=== PATIENT | female | born 1985 | race Caucasian/White ===

== ENCOUNTER 2019-08-30 15:42 | Emergency (ER) | payer OTHER ==
[~2019-08-30] VITALS: Ht 170.2 cm; Wt 68.5 kg
[2019-08-30] MEDS ORDERED: IV NS 0.9% 2,000 ML IV STA (15:53)
--- NOTE | 2019-08-30 15:57 | NUR ---
CONSTANCE39, FROM [facility], C/O CP NON RADIATING, HYPOTENSIVE 86/45 ON SCENE, ASA 162 MG GIVEN BY EMS, BS HIGH ON GLUCO MACHINE. PT AAOX4, VSS. RR EVEN & UNLABORED. DENIES CP, SOB, DIZZINESS, N/V, WEAKNESS @ THIS TIME. PT SEEN & EVAL'D BY DR. ROA. PLACED ON COMMERCIAL DIVER & WILL CONT TO MONITOR.
[2019-08-30 16:07] LABS: BASOPHILS # (AUTO) 0.1 /CMM (0.0-0.2); BASOPHILS % (AUTO) 1.2 % (0.0-2.0); HEMATOCRIT 32 % (33-45); HEMOGLOBIN 10.4 g/dL (11.5-14.8); LYMPHOCYTES # (AUTO) 1.2 /CMM (0.8-4.8); LYMPHOCYTES % (AUTO) 17.7 % (20.0-44.0); MEAN CORPUSCULAR HGB CONC 32 g/dl (31.0-36.0); MEAN CORPUSCULAR VOLUME 101 fL (82-100); MONOCYTES # (AUTO) 0.3 /CMM (0.1-1.30); NEUTROPHILS # (AUTO) 4.6 /CMM (1.8-8.9); NEUTROPHILS % (AUTO) 68.1 % (43.0-81.0); PLATELET COUNT (AUTO) 367 /CMM (150-450); RED BLOOD CELL COUNT(AUTO) 3.16 MIL/uL (4.0-5.2); WHITE BLOOD COUNT (AUTO) 6.7 K/uL (4.3-11.0)
[2019-08-30 16:39] LABS: CALCIUM, SERUM 8.8 mg/dL (8.5-10.1); CARBON DIOXIDE 24 mmol/L (21-32); CHLORIDE 98 mmol/L (98-107); CREATININE 2.2 mg/dL (0.6-1.3); POTASSIUM 5.9 mmol/L (3.5-5.1); SODIUM SERUM 130 mmol/L (136-145); UREA NITROGEN, BLOOD 23 mg/dL (7-18)
[2019-08-30 16:41] LABS: GLUCOSE 487 mg/dL (74-106)
[2019-08-30] MEDS ORDERED: INSULIN REGULAR, HUMAN 100 UNIT/ML 10 ML VIAL ONE (17:26)
[2019-08-30] MEDS ORDERED: INSULIN REGULAR, HUMAN 100 UNIT/ML 10 ML VIAL IV ONE (17:30)
--- NOTE | 2019-08-30 17:40 | NUR ---
GAVE MOVESHEET TO ADMITTING
--- NOTE | 2019-08-30 18:05 | NUR ---
DR BAUTISTA FROM PT INSURANCE WILL CALL BACK
--- NOTE | 2019-08-30 18:08 | NUR ---
PT ASLEEP, EASILY AWAKEN BY VERBAL STIMULI. DENIES CP, SOB, DIZZINESS, N/V @ THIS TIME. DR. ROA AWARE OF PT'S BP. WILL CONT TO MONITOR.
[2019-08-30] MEDS ORDERED: LOPE2CAP40 PO (18:37)
[2019-08-30] MEDS ORDERED: DOCU-141 PO (18:37)
[2019-08-30] MEDS ORDERED: LATA7.5D OP (18:37)
[2019-08-30] MEDS ORDERED: NIFE60TA73 PO (18:37)
[2019-08-30] MEDS ORDERED: LEVO137T24 PO (18:37)
[2019-08-30] MEDS ORDERED: ASPI-605 PO (18:37)
[2019-08-30] MEDS ORDERED: SPIR25TA6 PO (18:37)
[2019-08-30] MEDS ORDERED: ATOR40TA PO (18:37)
[2019-08-30] MEDS ORDERED: AMOX1TAB16 PO (18:37)
[2019-08-30] MEDS ORDERED: METO-295 PO (18:37)
[2019-08-30] MEDS ORDERED: CYCL5TAB PO (18:37)
[2019-08-30] MEDS ORDERED: MORP30TA59 PO (18:37)
[2019-08-30] MEDS ORDERED: NORG1TAB11 PO (18:37)
[2019-08-30] MEDS ORDERED: NALO1DIS2 IJ (18:37)
[2019-08-30] MEDS ORDERED: FLUD0.1T PO (18:37)
[2019-08-30] MEDS ORDERED: INSU100V7 SQ (18:37)
[2019-08-30] MEDS ORDERED: GABA-534 PO (18:37)
[2019-08-30] MEDS ORDERED: AMMO225L14 TP (18:37)
[2019-08-30] MEDS ORDERED: BENA40TA8 PO (18:37)
[2019-08-30] MEDS ORDERED: DORZ10DR11 OP (18:37)
[2019-08-30] MEDS ORDERED: CABE0.5T2 PO (18:45)
[2019-08-30] MEDS ORDERED: HYDR-4384 PO (18:45)
[2019-08-30] MEDS ORDERED: CLOT15CR63 TP (18:45)
[2019-08-30] MEDS ORDERED: HYDROCORTISONE SOD SUCCINATE 100 MG/2 ML VIAL ONE (18:54)
[2019-08-30] MEDS ORDERED: HYDROCORTISONE SOD SUCCINATE 100 MG/2 ML VIAL IV ONE (19:00)
[2019-08-30] MEDS ORDERED: INSULIN REGULAR, HUMAN 100 UNIT in IV NS 0.9% 99 ML IV PRN ×2 (19:00)
--- NOTE | 2019-08-30 20:52 | NUR ---
AWAITING CALL FROM LEAD RETAIL SALES ASSOCIATE
--- NOTE | 2019-08-30 21:25 | NUR ---
PT ASLEEP, EASILY AWAKEN BY VERBAL STIMULI. RR EVEN & UNLABORED. VSS. DENIES ANY DISCOMFORT @ THIS TIME. BG 238 MG/DL. DR. ROA DC'D INSULIN DRIP. WILL CONT TO MONITOR.
--- NOTE | 2019-08-30 23:28 | NUR ---
PT ACCEPTED TO [facility] [id number]. # FOR REPORT [phone]. PT ACCEPTED BY DR DUNLAP. [facility] [place][id number]
--- NOTE | 2019-08-31 01:13 | NUR ---
CARSON AT BEDSIDE FOR PT TRANSPORT TO [facility]. REPORTS GIVEN TO TASHA PEÑA AT [facility] BY TASHA MCLAIN (PREVIOUS SHIFT) FOR JASMINE. REPORT GIVEN TO LOR WELL.
[2019-08-31 01:15] VITALS: BP 114/63
== END 2019-08-31 01:19 | disposition short-term general hospital (02) ==
LOC: ER 15:45
DX: E27.49 Other adrenocortical insufficiency (principal); I10 Essential (primary) hypertension; E87.5 Hyperkalemia; E11.65 Type 2 diabetes mellitus with hyperglycemia; N17.9 Acute kidney failure, unspecified; R42 Dizziness and giddiness; E87.1 Hypo-osmolality and hyponatremia; Z98.890 Other specified postprocedural states; Z79.899 Other long term (current) drug therapy; Z79.4 Long term (current) use of insulin; Z79.82 Long term (current) use of aspirin
CPT/HCPCS: 36415; 71045; 80048; 82962 ×4; 84484; 85025; 93005 ×2; 96361; 96365; 96366; 96375; 96376; 99285; J1720; J1815 ×2; J7030 ×2

== ENCOUNTER 2019-10-30 13:47 | Inpatient (IN) | payer OTHER ==
[~2019-10-30] VITALS: Ht 170.2 cm; Wt 59.4 kg
[2019-10-30] VITALS (7 sets, daily range): BP systolic 114–137; BP diastolic 68–82
[~2019-10-30 13:47] MED LIST: AMMO225L14 TP; AMOX1TAB16 PO; ASPI-605 PO; ATOR40TA PO; BENA40TA8 PO; CABE0.5T2 PO; CLOT15CR63 TP; CYCL5TAB PO; DOCU-141 PO; DORZ10DR11 OP; GABA-534 PO; HYDR-4384 PO; INSU100V7 SQ; LATA7.5D OP; LEVO137T24 PO; LOPE2CAP40 PO; METO-295 PO; MORP30TA59 PO; NALO1DIS2 IJ; NIFE60TA73 PO; NORG1TAB11 PO; SPIR25TA6 PO
--- NOTE | 2019-10-30 14:00 | NUR ---
bibra99, from home, cough and congestion x 3 weeks, "afraid of getting pneumonia", BS 150. Patient a/ox4, breathing even and unlabored, no sob noted, c/o weakness. changed into gown, attached to the management tech. kept comfortable.
[2019-10-30] MEDS ORDERED: IV NS 0.9% 1,000 ML BAG IV ONE ×2 (14:30→16:30)
--- NOTE | 2019-10-30 14:30 | NUR ---
iv line established, blood drawn and sent to lab. Patient unable to provide urine at this time.
[2019-10-30 14:36] LABS: BASOPHILS % (AUTO) 0.4 % (0.0-2.0); EOSINOPHILS % (AUTO) 0.1 % (0.0-6.0); HEMATOCRIT 43 % (33-45); HEMOGLOBIN 14.1 g/dL (11.5-14.8); LYMPHOCYTES # (AUTO) 0.8 /CMM (0.8-4.8); LYMPHOCYTES % (AUTO) 9.6 % (20.0-44.0); MEAN CORPUSCULAR HGB CONC 33 g/dl (31.0-36.0); MEAN CORPUSCULAR VOLUME 95 fL (82-100); MONOCYTES # (AUTO) 0.3 /CMM (0.1-1.30); MONOCYTES % (AUTO) 3.7 % (2.0-12.0); NEUTROPHILS # (AUTO) 7.6 /CMM (1.8-8.9); NEUTROPHILS % (AUTO) 86.2 % (43.0-81.0); PLATELET COUNT (AUTO) 260 /CMM (150-450); RED BLOOD CELL COUNT(AUTO) 4.56 MIL/uL (4.0-5.2); WHITE BLOOD COUNT (AUTO) 8.8 K/uL (4.3-11.0)
[2019-10-30 14:47] LABS: CALCIUM, SERUM 8.8 mg/dL (8.5-10.1); CREATININE 2.2 mg/dL (0.6-1.3); POTASSIUM 4.8 mmol/L (3.5-5.1)
[2019-10-30 14:54] LABS: ALBUMIN 2.9 g/dL (3.4-5.0); BILIRUBIN,DIRECT 0.1 mg/dL (0.0-0.2); BILIRUBIN,TOTAL 0.2 mg/dL (0.2-1.0); TOTAL PROTEIN, SERUM 7.7 g/dL (6.4-8.2)
[2019-10-30 15:27] LABS: BILIRUBIN,URINE SMALL (NEGATIVE); BLOOD, URINE Large Ery/uL (NEGATIVE); COLOR,URINE Yellow (YELLOW); KETONES,URINE 15 (NEGATIVE); LEUKOCYTE ESTERASE ,URINE Small (NEGATIVE); NITRITE, URINE Negative (NEGATIVE); PROTEIN,URINE >=300 mg/dl (NEGATIVE); UGLUCOSE Negative (NEGATIVE); UROBILINOGEN,URINE 0.2 EU/dL (0.2)
[2019-10-30] MEDS ORDERED: ALBUTEROL FS 2.5 MG/3 ML VIAL.NEB NEB ONE (15:30)
[2019-10-30] MEDS ORDERED: IPRATROPIUM NEB FS 0.5 MG/2.5 ML AMPUL.NEB NEB ONE (15:30)
[2019-10-30] MEDS ORDERED: ONDANSETRON HCL/PF 4 MG/2 ML VIAL IV ONE (15:30)
[2019-10-30] MEDS ORDERED: KETOROLAC TROMETHAMINE INJ 30 MG/ML VIAL IV ONE (15:30)
[2019-10-30 15:36] LABS: APPEARANCE,URINE TURBID (CLEAR)
[2019-10-30 15:37] LABS: BACTERIA,URINE Many /HPF (None Seen); SQUAMOUS EPITHELIAL CELL,UR Moderate /HPF (None Seen); WBC,URINE 30-50 /HPF (0-3)
[2019-10-30] MEDS ORDERED: ONDANSETRON HCL/PF 4 MG/2 ML VIAL ONE (16:02)
[2019-10-30] MEDS ORDERED: KETOROLAC TROMETHAMINE INJ 30 MG/ML VIAL ONE (16:02)
--- NOTE | 2019-10-30 16:08 | NUR ---
Patient is resting comfortably in bed with eyes closed. Easily aroused. VSS
[2019-10-30] MEDS ORDERED: ALBUTEROL FS 2.5 MG/3 ML VIAL.NEB ONE (16:27)
[2019-10-30] MEDS ORDERED: IPRATROPIUM NEB FS 0.5 MG/2.5 ML AMPUL.NEB ONE (16:27)
[2019-10-30] MEDS ORDERED: CEFTRIAXONE 1GM BAG (ER ONLY) 50 ML IV ONE (16:29)
[2019-10-30] MEDS ORDERED: CEFTRIAXONE 1GM BAG (ER ONLY) 1 GM/50 ML PIGGYBACK IV ONE (16:30)
--- NOTE | 2019-10-30 17:00 | NUR ---
Patient is resting comfortably in bed with eyes closed. Easily aroused.
--- NOTE | 2019-10-30 17:15 | NUR ---
spoke with EMILY Fierro.
[2019-10-30] MEDS ORDERED: IV NS 0.9% 1,000 ML IV PRN ×2 (17:19→20:00)
[2019-10-30] MEDS ORDERED: ACETAMINOPHEN 325 MG TABLET PO PRN (17:30)
[2019-10-30] MEDS ORDERED: LOPERAMIDE HCL (2 MG CAP) 2 MG CAPSULE PO PRN (17:30)
[2019-10-30] MEDS ORDERED: DEXTROSE 50%-WATER 50 ML DISP.SYRIN IV PRN (17:30)
[2019-10-30] MEDS ORDERED: *INSULIN REGULAR(HUMULIN R)HUM 100 UNIT/ML VIAL SQ PRN (17:30)
[2019-10-30] MEDS ORDERED: HYDROCODONE/APAP 5/325MG 1 EACH TABLET PO PRN (17:30)
[2019-10-30] MEDS ORDERED: ALBUTEROL FS 2.5 MG/3 ML VIAL.NEB CONTNEB PRN (17:30)
[2019-10-30] MEDS ORDERED: Z GUARD REMEDY 2 OZ OINT TP PRN (17:30)
[2019-10-30] MEDS ORDERED: MAGNESIUM HYDROXIDE 30 ML UDC PO PRN (17:30)
[2019-10-30] MEDS ORDERED: ONDANSETRON HCL/PF 4 MG/2 ML VIAL IVP PRN (17:30)
[2019-10-30] MEDS ORDERED: INSULIN REGULAR, HUMAN 100 UNIT/ML 3 ML VIAL SQ PRN (17:30)
[2019-10-30] MEDS ORDERED: BLOOD SUGAR DIAGNOSTIC 1 EACH STRIP VI SCH (17:30)
--- NOTE | 2019-10-30 17:36 | NUR ---
NURSING SUP GAVE M/S BED 119-2.
--- NOTE | 2019-10-30 18:02 | NUR ---
REPORT GIVEN TO GABBY CORDOVA FOR JASMINE.
[2019-10-30 18:09] LABS: ABG BASE EXCESS -15.3 mmol/L; ABG OXYGEN SATURATION 94.6 % (92.0-98.5); ABG PCO2 20.7 mmHg (35.0-45.0); ABG PH 7.278 (7.350-7.450); ABG PO2 83.2 mmHg (75.0-100.0); AaDO2 41.7 mmHg; COHb 0.3 % (0.5-1.5); MetHb 0.4 % (0.0-1.5); O2Hb 93.9 % (94.0-97.0); SITE, ABG Right Radial; VENT MODE, BG ROOM AIR
--- NOTE | 2019-10-30 18:16 | NUR ---
ABG RESULT REPORTED TO DR. VOSS. GAVE ORDER TO UPGRADE PATIENT TO ICU FOR DKA.
--- NOTE | 2019-10-30 18:32 | NUR ---
ICU 254
--- NOTE | 2019-10-30 19:15 | NUR ---
SENIOR NETWORK ENGINEER NOTES RECEIVED CALL FROM DR VOSS, WITH CLARIFICATION OF ORDERS. PER DR VOSS, MAKE SURE THAT THE PATIENT TURNS OFF HER INSULIN PUMP BEFORE STARTING IV FLUIDS/INSULIN DRIP SO THAT THE PATIENT IS NOT DOUBLE DOSED
[2019-10-30] MEDS ORDERED: IV PREMIX D5 1/2NS + KCL 1,000 ML IV PRN (19:18)
--- NOTE | 2019-10-30 19:42 | NUR ---
REPORT GIVEN TO MONTY RN. FOR JASMINE.
--- NOTE | 2019-10-30 19:50 | NUR ---
VAT HOUSE LABORERAUDIOVISUAL AIDS TECHNICIAN NOTES [facility], DIAGNOSIS: DKA. PATIENT LETHARGIC, BUT ALERT AND ORIENTED X4, ABLE TO VERBALIZE NEEDS. BREATHING LABORED UPON EXERTION, RESPIRATORY RATE IN THE 30S AT THIS TIME. CALL LIGHT WITHIN EASY REACH. RIGHT EYE BLINDNESS, LEFT EYE ABLE TO SEE "OUTLINES." LEFT AND RIGHT AC IV ACCESS #20, PATENT AND INTACT, FLUSHED WITH NS, WILL START IV FLUIDS ORDERED BY MD. PLAN OF CARE DISCUSSED WITH THE PATIENT, WHOM VERBALIZES UNDERSTANDING OF THE PLAN OF CARE. ALL QUESTIONS ANSWERED ABLE.
[2019-10-30] MEDS ORDERED: IV D5/ 0.9% NACL 1,000 ML IV PRN (20:00)
[2019-10-30] MEDS: BLOOD SUGAR DIAGNOSTIC 1 EACH STRIP IN SCH ×3 (20:07→22:05)
--- NOTE | 2019-10-30 20:16 | NUR ---
KETTLE GIRL NOTES ATTEMPTED TO CALL PATIENT'S SISTER XOCHITL [phone] REGARDING BRINGING CONTROL PILLS FROM HOME TO BRING TO PHARMACY. UNABLE TO REACH AT THIS TIME, UNABLE TO LEAVE VOICE MESSAGE MAIL BOX IS FULL. WILL TRY AGAIN AT LATER TIME
[2019-10-30 21:21] LABS: CALCIUM, SERUM 7.7 mg/dL (8.5-10.1); CREATININE 2.1 mg/dL (0.6-1.3); POTASSIUM 3.9 mmol/L (3.5-5.1)
[2019-10-30] MEDS: ATORVASTATIN 40 MG TABLET PO SCH ×2 (22:00→22:09)
--- NOTE | 2019-10-30 22:00 | NUR ---
LABOR DELIVERY RN NOTES NORCO INEFFECTIVE FOR PAIN. PATIENT REQUEST FOR IV PAIN MEDICATION. DR VOSS NOTIFIED, WITH NEW ORDER FOR MORPHINE 2MG IV Q4H PRN FOR SEVERE PAIN AND ZOFRAN 4MG Q4H PRN FOR NAUSEA. WILL CARRY OUT NEW ORDERS AND MONITOR THE PATIENT CLOSELY
[2019-10-30] MEDS: INSULIN REGULAR, HUMAN 100 UNIT in IV NS 0.9% 99 ML IV PRN ×2 (22:07)
[2019-10-30] MEDS: TIMOLOL MAL/DORZOLAM HCL OPHTH 10 ML BOTTLE OP SCH (22:10)
[2019-10-30] MEDS: MORPHINE SULFATE INJ 2 MG/ML DISP.SYRIN IV PRN (22:46)
[2019-10-31] VITALS (30 sets, daily range): BP systolic 99–168; BP diastolic 60–113
[2019-10-31] MEDS: IV D5/0.45 NACL 1,000 ML IV PRN ×3 (02:20→19:36)
[2019-10-31 03:39] LABS: BASOPHILS % (AUTO) 0.5 % (0.0-2.0); EOSINOPHILS % (AUTO) 0.2 % (0.0-6.0); HEMATOCRIT 40 % (33-45); HEMOGLOBIN 13.1 g/dL (11.5-14.8); LYMPHOCYTES # (AUTO) 1.1 /CMM (0.8-4.8); LYMPHOCYTES % (AUTO) 13.5 % (20.0-44.0); MEAN CORPUSCULAR HGB CONC 33 g/dl (31.0-36.0); MEAN CORPUSCULAR VOLUME 94 fL (82-100); MONOCYTES # (AUTO) 0.4 /CMM (0.1-1.30); MONOCYTES % (AUTO) 4.6 % (2.0-12.0); NEUTROPHILS # (AUTO) 6.8 /CMM (1.8-8.9); NEUTROPHILS % (AUTO) 81.2 % (43.0-81.0); PLATELET COUNT (AUTO) 194 /CMM (150-450); RED BLOOD CELL COUNT(AUTO) 4.28 MIL/uL (4.0-5.2); WHITE BLOOD COUNT (AUTO) 8.4 K/uL (4.3-11.0)
[2019-10-31] MEDS: MORPHINE SULFATE INJ 2 MG/ML DISP.SYRIN IV PRN ×5 (03:46→23:00)
[2019-10-31 04:01] LABS: CALCIUM, SERUM 7.5 mg/dL (8.5-10.1); CREATININE 1.9 mg/dL (0.6-1.3); MAGNESIUM 1.7 mg/dL (1.8-2.4); PHOSPHORUS 2.5 mg/dL (2.5-4.9); POTASSIUM 3.7 mmol/L (3.5-5.1)
--- NOTE | 2019-10-31 04:15 | NUR ---
BLEACHER SULFITE PULP NOTES BLOOD SUGAR AT 0400 = 107. RIKKI SAFETY PERSON NOTIFIED SINCE BLOOD SUGAR HAS BEEN TRENDING DOWN BUT THE ANION GAP IS STILL OPEN AT 18. PER RIKKI, INCREASE IV FLUIDS TO D5 1/2 NS @ 150ML/HR. WILL CARRY OUT NEW ORDERS AND CONTINUE CLOSE MONITORING
--- NOTE | 2019-10-31 07:00 | NUR ---
DATA SCIENCES DIRECTOR NOTES PATIENT RESTING IN BED, APPEARS COMFORTABLE AT THIS TIME. CONTINUES ON INSULIN GTT, TITRATED TO 1.6 UNITS/HOUR FOR BLOOD SUGAR OF 106MG/DL.
--- NOTE | 2019-10-31 07:24 | NUR ---
ICU OPENING NOTE RECEIVED BEDSIDE REPORT. PT ASLEEP IN BED, ON ROOM AIR, SATURATING WELL, RESPIRATIONS EVEN AND UNLABORED, NO SIGNS OF RESPIRATORY DISTRESS NOTED. SINUS RHYTHM ON TELE MONITOR. IV SITE ON RIGHT AC G20 INTACT, PATENT, WITH HEP LOCK IN PLACE. IV SITE ON LEFT AC G20 INTACT, PATENT, D5 1/2 NS INFUSING AT 150CC/HR, INSULIN DRIP INFUSING AT 1.6 UNITS/HR. BED IN LOW POSITION, LOCKED, CALL LIGHT WITHIN REACH. WILL CONTINUE TO MONITOR CLOSELY.
[2019-10-31] MEDS: LEVOTHYROXINE SODIUM 75 MCG TABLET PO SCH (07:46)
--- NOTE | 2019-10-31 08:04 | NUR ---
BLOOD GLUCOSE RESULT 145 MG/DL. CHANGED INSULIN DRIP TO 2.175 UNITS/HR.
[2019-10-31] MEDS: GABAPENTIN 300 MG CAPSULE PO SCH ×3 (08:40→16:18)
[2019-10-31] MEDS: TIMOLOL MAL/DORZOLAM HCL OPHTH 10 ML BOTTLE OP SCH ×2 (08:40→16:18)
[2019-10-31] MEDS: METOCLOPRAMIDE HCL 10 MG TABLET PO SCH ×3 (08:40→16:18)
[2019-10-31] MEDS: ASPIRIN EC 81 MG TABLET.DR PO SCH (08:40)
[2019-10-31] MEDS: DOCUSATE SODIUM 100 MG CAPSULE PO SCH (08:40)
[2019-10-31] MEDS: CYCLOBENZAPRINE 10 MG TABLET PO SCH (08:40)
[2019-10-31] MEDS: AMMONIUM LACTATE 227 GM BOTTLE TP SCH (08:42)
[2019-10-31] MEDS: NIFEdipine XL 60 MG TAB PO SCH (09:00)
[2019-10-31] MEDS ORDERED: NORGESTIMATE ETHINYL ESTRADIOL PO SCH (09:00)
[2019-10-31] MEDS ORDERED: MORPHINE SULFATE SR 30 MG TABLET.SA PO SCH (09:00)
[2019-10-31] MEDS ORDERED: Magnesium 1GM/D5W 100ML PREMIX 100 ML IV SCH (09:17)
[2019-10-31] MEDS: CLOTRIMAZOLE 1% CREAM 24 GM TUBE TP SCH ×2 (09:27→16:19)
[2019-10-31 09:56] LABS: CALCIUM, SERUM 7.4 mg/dL (8.5-10.1); CREATININE 1.7 mg/dL (0.6-1.3); POTASSIUM 3.6 mmol/L (3.5-5.1)
[2019-10-31] MEDS: methylPREDNISolone SOD SUCC 125 MG/2ML VIAL IV SCH ×3 (12:41→21:26)
[2019-10-31 13:38] LABS: CALCIUM, SERUM 7.7 mg/dL (8.5-10.1); CREATININE 1.6 mg/dL (0.6-1.3); POTASSIUM 3.4 mmol/L (3.5-5.1)
[2019-10-31] MEDS: CEFTRIAXONE 1 G in IV D5W 50 ML IV SCH (16:52)
[2019-10-31 17:01] LABS: CREATININE 1.5 mg/dL (0.6-1.3)
--- NOTE | 2019-10-31 17:14 | NUR ---
COLLECTED URINE SAMPLE, CALLED LAB FOR REPAIR MECHANIC
[2019-10-31] MEDS: BLOOD SUGAR DIAGNOSTIC 1 EACH STRIP IN SCH ×3 (18:04→23:10)
--- NOTE | 2019-10-31 18:59 | NUR ---
ICU CLOSING NOTE PT AWAKE IN BED, ALERT AND ORIENTED X 4, ON ROOM AIR, SATURATING WELL, RESPIRATIONS EVEN AND UNLABORED, NO SIGNS OF RESPIRATORY DISTRESS NOTED. SINUS RHYTHM ON TELE MONITOR. IV SITE ON RIGHT AC G20 INTACT, PATENT, INFUSING D5 1/2 NS AT 150CC/HR, INSULIN DRIP INFUSING AT 4UNITS/HR . IV SITE ON RIGHT HAND G22 INTACT, PATENT WITH HEP LOCK IN PLACE. PROVIDED SAFETY AND COMFORT TO PT THROUGHOUT SHIFT, ALL DUE MEDS GIVEN, TURNED AND REPOSITIONED EVERY 2 HOURS. PT ATE 0% BREAKFAST, ATE 100% LUNCH AND DINNER. BED IN LOW POSITION, LOCKED, CALL LIGHT WITHIN REACH. WILL ENDORSE TO NOC SHIFT NURSE FOR JASMINE.
--- NOTE | 2019-10-31 19:00 | NUR ---
RECEIVED PATIENT AWAKE.ALERT,CONVERSES,COHERENT AND APPROPRIATE,NOT IN ANY DISTRESS BUT FEELS VERY WEAK AND TIRED LOOKING,ABLE TO MOVE IN BED WITH NO DIFFICULTY BUT C/O CHRONIC BACK PAIN.ON INSULIN DRIP ,FINGER STICK /BS MONITORY Q 1HR. BMP Q 4HRR. COMFORT CARE DONE,NEEDS ATTENDED.
[2019-10-31 19:11] LABS: CREATININE, URINE 85.7 MG/DL (30.0-125.0); URINE TOTAL PROTEIN 130.6 mg/dL (0-11.9)
[2019-10-31 20:08] LABS: APPEARANCE,URINE CLEAR (CLEAR); BILIRUBIN,URINE NEGATIVE (NEGATIVE); BLOOD, URINE MODERATE Ery/uL (NEGATIVE); COLOR,URINE YELLOW (YELLOW); KETONES,URINE NEGATIVE (NEGATIVE); LEUKOCYTE ESTERASE ,URINE TRACE (NEGATIVE); NITRITE, URINE NEGATIVE (NEGATIVE); PROTEIN,URINE 100 mg/dl (NEGATIVE); UGLUCOSE NEGATIVE (NEGATIVE); UROBILINOGEN,URINE 0.2 EU/dL (0.2)
[2019-10-31 20:09] LABS: CALCIUM, SERUM 7.8 mg/dL (8.5-10.1); CREATININE 1.5 mg/dL (0.6-1.3); POTASSIUM 4.1 mmol/L (3.5-5.1)
[2019-10-31 20:22] LABS: BACTERIA,URINE 1+ /HPF (None Seen); SQUAMOUS EPITHELIAL CELL,UR Few /HPF (None Seen); WBC,URINE 21-50 /HPF (0-3); YEAST,URINE Few /HPF (None Seen)
[2019-10-31 20:32] LABS: EOSINOPHIL,URINE Rare
[2019-10-31] MEDS: ATORVASTATIN 40 MG TABLET PO SCH ×2 (21:26→21:37)
[2019-10-31] MEDS: MORPHINE SULFATE SR 15 MG TABLET.SA PO SCH (21:35)
--- NOTE | 2019-10-31 22:00 | NUR ---
NOTED BP TO BE HIGH,PATIENT STATES SHE WAS ON ANTI HTN MEDS BEFORE BUT WAS TOLD BY MD TO STOP TAKING IT.ALSO C/O BACK PAIN ,WILL GIVE DUE PAIN MEDICATION (MORPHINE SR) AND WILL REASSES BP AFTER, ONCE PAIN IS BETTER
[2019-10-31 22:49] LABS: CALCIUM, SERUM 7.8 mg/dL (8.5-10.1); CREATININE 1.6 mg/dL (0.6-1.3); POTASSIUM 4.2 mmol/L (3.5-5.1)
--- NOTE | 2019-10-31 23:00 | NUR ---
BP STILL HIGH 163/110, STILL WITH PAIN BUT NOT TOO BAD.MORPHINE 2 MG IV PRN GIVEN. WILL MONITOR IF BP COMES DOWN AFTER GIVING PAIN MEDICATION,DENIES ANY HEADACHE.
--- NOTE | 2019-10-31 23:50 | NUR ---
BP STILL HIGH AFTER GIVING PAIN MEDICATION,PATIENT IS ASLEEP /RELAX. CALLED MD STRAIGHTENER HAND TO REFER ABOUT HIGH BP. Nilson COSTA RESPONDED MADE HIM AWARE OF THE PROLONGED ELEVATED BLOOD PRESSURE DESPITE GIVING PAIN MEDICATION , ORDERED HYDRALAZINE PO (SUGGESTED IV,BUT HE THINKS PATIENT DOES NOT NEED IV HYDRALAZINE).
[2019-11-01] VITALS (58 sets, daily range): BP systolic 115–196; BP diastolic 78–118
[2019-11-01] MEDS ORDERED: hydrALAZINE HCL 25 MG TABLET PO ONE
[2019-11-01] MEDS: BLOOD SUGAR DIAGNOSTIC 1 EACH STRIP IN SCH ×24 (00:08→23:11)
[2019-11-01] MEDS ORDERED: hydrALAZINE HCL 25 MG TABLET ONE (00:42)
[2019-11-01] MEDS: IV D5/0.45 NACL 1,000 ML IV PRN ×3 (02:09→16:18)
[2019-11-01 03:28] LABS: BASOPHILS % (AUTO) 0.1 % (0.0-2.0); HEMATOCRIT 40 % (33-45); HEMOGLOBIN 13.2 g/dL (11.5-14.8); LYMPHOCYTES # (AUTO) 0.4 /CMM (0.8-4.8); LYMPHOCYTES % (AUTO) 6.9 % (20.0-44.0); MEAN CORPUSCULAR HGB CONC 33 g/dl (31.0-36.0); MEAN CORPUSCULAR VOLUME 93 fL (82-100); MONOCYTES # (AUTO) 0.1 /CMM (0.1-1.30); MONOCYTES % (AUTO) 1.3 % (2.0-12.0); NEUTROPHILS # (AUTO) 5.8 /CMM (1.8-8.9); NEUTROPHILS % (AUTO) 91.7 % (43.0-81.0); PLATELET COUNT (AUTO) 218 /CMM (150-450); RED BLOOD CELL COUNT(AUTO) 4.36 MIL/uL (4.0-5.2); WHITE BLOOD COUNT (AUTO) 6.3 K/uL (4.3-11.0)
[2019-11-01] MEDS: MORPHINE SULFATE INJ 2 MG/ML DISP.SYRIN IV PRN ×4 (03:40→19:58)
[2019-11-01 03:42] LABS: ALBUMIN 2.2 g/dL (3.4-5.0); BILIRUBIN,TOTAL 0.1 mg/dL (0.2-1.0); CALCIUM, SERUM 7.9 mg/dL (8.5-10.1); CREATININE 1.4 mg/dL (0.6-1.3); MAGNESIUM 1.9 mg/dL (1.8-2.4); PHOSPHORUS 1.5 mg/dL (2.5-4.9); TOTAL PROTEIN, SERUM 6.6 g/dL (6.4-8.2)
--- NOTE | 2019-11-01 04:00 | NUR ---
CALLED MD AGAIN ,BP STILL HIGH DESPITE PAIN MEDICATION,PATIENT RELAX AND ASLEEP ,JUAN CARLOS COSTA RESPONDED MADE HIM AWARE OF BP STILL HIGH AFTER THE HYDRALAZINE PO DOSE, ORDERED TO GIVE 10 MG HYDRALAZINE IVP
[2019-11-01] MEDS ORDERED: hydrALAZINE HCL IV 20 MG VIAL IV ONE (04:30)
[2019-11-01] MEDS: INSULIN REGULAR, HUMAN 100 UNIT in IV NS 0.9% 99 ML IV PRN ×2 (05:12)
--- NOTE | 2019-11-01 06:00 | NUR ---
BP improved post Hydralazine IV.Still on insulin drip ,continue FS check q 1 hr.Report given to Fariha CORDOVA
--- NOTE | 2019-11-01 07:30 | NUR ---
INTAKE SPECIALIST OPENING NOTE RECEIVED BEDSIDE REPORT FROM PM NURSE. PATIENT IN BED.AXOX4.R EYE BLINDNESS .ON ROOM AIR. SATURATING WELL.RESPIRATIONS EVEN AND UNLABORED. NO SIGNS OF RESPIRATORY DISTRESS NOTED. SINUS RHYTHM ON TELE MONITOR. IV SITE ON RIGHT AC G20 INTACT, PATENT, WITH HEP LOCK IN PLACE. IV SITE ON LEFT AC G20 INTACT, PATENT, D5 1/2 NS INFUSING AT 150CC/HR, INSULIN DRIP . BED IN LOW POSITION, LOCKED, CALL LIGHT WITHIN REACH.SRX3. WILL CONTINUE TO MONITOR .
[2019-11-01] MEDS: LEVOTHYROXINE SODIUM 75 MCG TABLET PO SCH (07:40)
[2019-11-01 08:44] LABS: CALCIUM, SERUM 8.1 mg/dL (8.5-10.1); CREATININE 1.4 mg/dL (0.6-1.3); POTASSIUM 3.6 mmol/L (3.5-5.1)
[2019-11-01] MEDS: DOCUSATE SODIUM 100 MG CAPSULE PO SCH (09:00)
[2019-11-01] MEDS: CLOTRIMAZOLE 1% CREAM 24 GM TUBE TP SCH ×2 (09:32→17:16)
[2019-11-01] MEDS: TIMOLOL MAL/DORZOLAM HCL OPHTH 10 ML BOTTLE OP SCH ×2 (09:33→17:16)
[2019-11-01] MEDS: CYCLOBENZAPRINE 10 MG TABLET PO SCH (09:33)
[2019-11-01] MEDS: methylPREDNISolone SOD SUCC 125 MG/2ML VIAL IV SCH ×4 (09:33→20:58)
[2019-11-01] MEDS: MORPHINE SULFATE SR 15 MG TABLET.SA PO SCH ×2 (09:33→20:59)
[2019-11-01] MEDS: ASPIRIN EC 81 MG TABLET.DR PO SCH (09:33)
[2019-11-01] MEDS: METOCLOPRAMIDE HCL 10 MG TABLET PO SCH ×3 (09:34→16:59)
[2019-11-01] MEDS: GABAPENTIN 300 MG CAPSULE PO SCH ×3 (09:34→16:59)
[2019-11-01] MEDS: NIFEdipine XL 60 MG TAB PO SCH (09:34)
[2019-11-01] MEDS: MAG HYDROX/AL HYDROX/SIMETH 30 ML UDC PO PRN ×2 (09:40→15:13)
[2019-11-01] MEDS: AMMONIUM LACTATE 227 GM BOTTLE TP SCH (09:47)
[2019-11-01] MEDS ORDERED: K PHOS NEUTRAL 250 MG TABLET PO ONE (11:00)
--- NOTE | 2019-11-01 13:10 | NUR ---
TACK MAKER NOTE PATIENT C/O SORE THROAT AND BP IS TRENDING UP >160.PATIENT REFUSED TO TAKE ANY BP PRN MEDS.WAIT FOR WHILE. MADE AWARE. GOT NEW ORDERS.WILL CONTINUE TO MONITOR.
[2019-11-01] MEDS ORDERED: MENTHOL/CETYLPYRD (CEPACOL) 1 LOZ LOZENGE PO PRN (13:30)
[2019-11-01 13:33] LABS: CALCIUM, SERUM 7.9 mg/dL (8.5-10.1); CREATININE 1.3 mg/dL (0.6-1.3)
[2019-11-01] MEDS: CLONIDINE HCL 0.1 MG TABLET PO PRN ×2 (13:33→20:58)
[2019-11-01] MEDS: CEFTRIAXONE 1 G in IV D5W 50 ML IV SCH (17:15)
[2019-11-01 17:53] LABS: CALCIUM, SERUM 8.1 mg/dL (8.5-10.1); CREATININE 1.4 mg/dL (0.6-1.3); POTASSIUM 3.8 mmol/L (3.5-5.1)
--- NOTE | 2019-11-01 19:22 | NUR ---
FUTURES TRADER CLOSING NOTE PATIENT IN BEDSIDE COMMODE.AXOX4.R EYE BLINDNESS .ON ROOM AIR. SATURATING WELL.RESPIRATIONS EVEN AND UNLABORED. NO SIGNS OF RESPIRATORY DISTRESS NOTED. SINUS RHYTHM ON TELE MONITOR. IV SITE ON RIGHT AC G20 INTACT, PATENT, WITH HEP LOCK IN PLACE. IV SITE ON LEFT AC G20 INTACT, PATENT, D5 1/2 NS INFUSING AT 100CC/HR, INSULIN DRIP . BED IN LOW POSITION, LOCKED, CALL LIGHT WITHIN REACH.SRX3. UPDATED ABOUT PATIENT CONDITION WITH LABS.DECREASE IVF TO 100ML/HR.PATIENT HAS BLACK COLOR BM.AND ABDOMINAL PAIN.GOT ORDER FOR STOOL FOR OB. ENDORSED TO PM NURSE FOR JASMINE,
--- NOTE | 2019-11-01 19:25 | NUR ---
RN OPENING NOTES RECEIVED PATIENT IN BED, AWAKE, AXOX4. C/O OF LOWER BACK PAIN 05/27, WILL ADMINISTER PRN PAIN MEDICATION. NOTED PATIENT WITH R EYE BLINDNESS AND USES MAGNIFIER AT BEDSIDE. ON ROOM AIR, TOLERATING WELL, NO SOB OR RESPIRATORY DISRESS NOTED, SATURATING 98%. SINUS RHYTHM ON TELE MONITOR WITH HR 80'S. IV SITE RIGHT HAND 22G, FLUSHING AND PATENT, SITE C/D/I. IV SITE ON RIGHT AC G20 SITE C/D/I, WITH ON GOING D5 1/2 NS INFUSING AT 100CC/HR, AND INSULIN DRIP NOTED CURRENTLY RUNNING 4UNITS. SAFETY MEASURES IN PLACE; CALL LIGHT WITHIN REACH, SIDE RAILS UP X2, BED IN LOW AND LOCKED POSITION. BED SIDE COMMODE NOTED. INSTRUCTED PATIENT TO USE CALL LIGHT FOR HELP. WILL CONT TO MONITOR PT CLOSELY.
--- NOTE | 2019-11-01 21:20 | NUR ---
RN NOTES CALLED LAB AND SPOKE TO YANDY FOR BMP LAB DRAW, STATED THEY WILL COME UP AND DO IT. AWAITING FOR LAB.
[2019-11-01 22:00] LABS: CALCIUM, SERUM 7.9 mg/dL (8.5-10.1); CREATININE 1.4 mg/dL (0.6-1.3)
[2019-11-01] MEDS: ATORVASTATIN 40 MG TABLET PO SCH (22:21)
[2019-11-02] VITALS (24 sets, daily range): BP systolic 111–163; BP diastolic 61–104
[2019-11-02] MEDS: BLOOD SUGAR DIAGNOSTIC 1 EACH STRIP IN SCH ×14 (00:06→12:02)
[2019-11-02] MEDS: ZOLPIDEM TARTRATE 5 MG TABLET PO PRN ×2 (00:43→23:36)
[2019-11-02 01:08] LABS: CALCIUM, SERUM 7.9 mg/dL (8.5-10.1); CREATININE 1.3 mg/dL (0.6-1.3); POTASSIUM 4.2 mmol/L (3.5-5.1)
[2019-11-02] MEDS: IV D5/0.45 NACL 1,000 ML IV PRN (01:16)
[2019-11-02 05:41] LABS: CALCIUM, SERUM 8.2 mg/dL (8.5-10.1); CREATININE 1.5 mg/dL (0.6-1.3); PHOSPHORUS 1.5 mg/dL (2.5-4.9); POTASSIUM 3.9 mmol/L (3.5-5.1)
[2019-11-02] MEDS: INSULIN REGULAR, HUMAN 100 UNIT in IV NS 0.9% 99 ML IV PRN ×2 (06:30)
[2019-11-02] MEDS: MORPHINE SULFATE INJ 2 MG/ML DISP.SYRIN IV PRN ×3 (06:31→22:40)
--- NOTE | 2019-11-02 07:15 | NUR ---
SUPERVISOR BURLING AND JOINING INITIAL NOTES Rec'd pt on bed, A/O x 4, not in any distress. On R/A, no SOB. SR on telemonitor. Has IV line on HALIE G24 w/ Insulin drip and D5NS x 100 cc/hr infusing well. Safety precaution in place w/ bed in lowest & locked pos. Call light placed w/in reach. Will cont to monitor & attend pt needs.
--- NOTE | 2019-11-02 07:15 | NUR ---
RN CLOSING NOTES PATIENT RESTING IN BED, AWAKE, A/OX4. ON ROOM AIR, TOLERATING WELL, NO SOB OR RESPIRATORY DISTRESS NOTED, SATURATING 96%. SINUS RHYTHM ON TELE MONITOR WITH HR 80'S. IV SITE LEFT AC 24G WITH ON GOING D5 1/2 NS INFUSING AT 100CC/HR, AND INSULIN DRIP NOTED CURRENTLY RUNNING 4UNITS. LATEST ANION GAP 16. MIDLINE ORDERED D/T PATIENT VERY HARD STICK. STOOL SAMPLE COLLECTED AND SENT TO LAB. SAFETY MEASURES IN PLACE; CALL LIGHT WITHIN REACH, SIDE RAILS UP X2, BED ALARM ON, BED IN LOW AND LOCKED POSITION. BED SIDE COMMODE NOTED. INSTRUCTED PATIENT TO USE CALL LIGHT FOR HELP. ENDORSED TO AM RN FOR JASMINE.
[2019-11-02] MEDS: CLOTRIMAZOLE 1% CREAM 24 GM TUBE TP SCH ×2 (07:40→18:45)
[2019-11-02] MEDS: LEVOTHYROXINE SODIUM 75 MCG TABLET PO SCH (07:40)
[2019-11-02] MEDS: ASPIRIN EC 81 MG TABLET.DR PO SCH (09:08)
[2019-11-02] MEDS: DOCUSATE SODIUM 100 MG CAPSULE PO SCH (09:08)
[2019-11-02] MEDS: MORPHINE SULFATE SR 15 MG TABLET.SA PO SCH ×2 (09:08→21:23)
[2019-11-02] MEDS: GABAPENTIN 300 MG CAPSULE PO SCH ×3 (09:08→16:30)
[2019-11-02] MEDS: methylPREDNISolone SOD SUCC 125 MG/2ML VIAL IV SCH ×2 (09:09→17:00)
[2019-11-02] MEDS: METOCLOPRAMIDE HCL 10 MG TABLET PO SCH ×3 (09:09→18:45)
[2019-11-02] MEDS: CYCLOBENZAPRINE 10 MG TABLET PO SCH (09:09)
[2019-11-02] MEDS: TIMOLOL MAL/DORZOLAM HCL OPHTH 10 ML BOTTLE OP SCH ×2 (09:13→16:32)
[2019-11-02] MEDS: NIFEdipine XL 60 MG TAB PO SCH (09:13)
[2019-11-02] MEDS: AMMONIUM LACTATE 227 GM BOTTLE TP SCH (09:14)
[2019-11-02] MEDS: MAG HYDROX/AL HYDROX/SIMETH 30 ML UDC PO PRN ×3 (09:29→23:52)
--- NOTE | 2019-11-02 11:00 | NUR ---
Pt seen & examined by Dr. Sneed, updated about pt condition & status.
[2019-11-02 11:05] LABS: CALCIUM, SERUM 7.8 mg/dL (8.5-10.1); CREATININE 1.3 mg/dL (0.6-1.3); POTASSIUM 4.1 mmol/L (3.5-5.1)
[2019-11-02] MEDS: LEVOFLOXACIN 500 MG /D5W 100ML 500 MG in PREMIX 1 EA IV SCH (11:27)
[2019-11-02] MEDS: CLONIDINE HCL 0.1 MG TABLET PO PRN (12:14)
[2019-11-02] MEDS ORDERED: K PHOS NEUTRAL 250 MG TABLET PO ONE (12:30)
--- NOTE | 2019-11-02 12:30 | NUR ---
Anion gap [address] Sneed w/ orders to stop IVF & insulin drip. Start on moderate sliding scale ACHS. May downgrade to MS. Pt made aware. Addendum: 11/02/19 at 1638 by KILO LEI RN Addendum: Dr. Sneed made aware that pt has been running high BP. Per , to continue PRN clonidine & he will resume pt home meds.
[2019-11-02] MEDS ORDERED: DEXTROSE 50%-WATER 50 ML DISP.SYRIN IV PRN (13:00)
--- NOTE | 2019-11-02 15:00 | NUR ---
CAR PRE COOLERTELEVISION SCHEDULE COORDINATOR NOTES Pt downgraded to MS 202 as ordered via bed. Pt remains A/O x 4. No SOB while on R/A. Remains SR on telemonitor. IV line access kept patent & intact, both flushing well, SL. All belongings sent w/ pt, per pt nothing missing. Report given to Valerie CORDOVA for JASMINE. Safety precaution observed at all times. No concerns/issues identified during transfer.
--- NOTE | 2019-11-02 15:21 | NUR ---
MS RN NOTES RECEIVED PATIENT FROM ICU, ALERT AND ORIENTED X4. AMBULATORY WITH UNSTEADY GAIT, ASSISTANCE RENDERED. NO S/S OF RESPIRATORY DISTRESS. ORIENTED PATIENT TO ROOM, CALL LIGHT AND UNIT. CALL LIGHT WITHIN REACH. BED IN LOWEST POSITION, LOCKED. BED ALARM ON.
--- NOTE | 2019-11-02 15:25 | NUR ---
MS RN NOTES BS CHECKED BS 468MG/DL DR. VOSS AWARE WITH ORDERS TO GIVE 14 UNITS OF REGULAR INSULIN NOW.
[2019-11-02] MEDS: INSULIN REGULAR, HUMAN 100 UNIT/ML 3 ML VIAL SQ PRN ×2 (15:49→17:47)
--- NOTE | 2019-11-02 16:24 | NUR ---
MS RN NOTES BS RECHECKED. 508MG/DL
--- NOTE | 2019-11-02 17:29 | NUR ---
MS RN NOTES BS RECHECKED 538MG/DL DR. VOSS MADE AWARE WITH ORDER FOR 16 UNITS OF REGULAR INSULIN NOW
[2019-11-02] MEDS: BLOOD SUGAR DIAGNOSTIC 1 EACH STRIP VI SCH ×2 (17:47→21:24)
--- NOTE | 2019-11-02 17:48 | NUR ---
MS RN NOTES HELD SOLU-MEDROL BS 538MG/DL
--- NOTE | 2019-11-02 18:14 | NUR ---
MS RN NOTES BS 471MG/DL TRENDING DOWN, DR. VOSS MADE AWARE.
--- NOTE | 2019-11-02 19:00 | NUR ---
MS RN CLOSING NOTES PATIENT ASLEEP IN BED, AROUSABLE TO VERBAL AND TACTILE STIMULI. HOB ELEVATED. NO SOB. DENIES ANY C/O PAIN NOR DISCOMFORT AT THIS TIME. LEFT AC # 24 AND RIGHT AC # 20 INTACT AND PATENT. CALL LIGHT WITHIN REACH. BED IN LOWEST POSITION, LOCKED. BED ALARM ON. IN NO APPARENT DISTRESS.
--- NOTE | 2019-11-02 19:32 | NUR ---
MS RN RECEIVED PATIENT IN BED AWAKE A/O X 4, STABLE AND NOT IN DISTRESS. WILL CONTINUE TO MONITOR
[2019-11-02 20:26] LABS: OCCULT BLOOD STOOL NEGATIVE (NEGATIVE)
[2019-11-02] MEDS: ATORVASTATIN 40 MG TABLET PO SCH (21:23)
[2019-11-02] MEDS: *INSULIN REGULAR(HUMULIN R)HUM 100 UNIT/ML VIAL SQ PRN (21:31)
[2019-11-02] MEDS: INSULIN GLARGINE, 100 UNIT/ML CARTRIDGE SQ SCH (22:37)
--- NOTE | 2019-11-02 22:40 | NUR ---
MS RN VS STABLE BP 133/66 R 19 PULSE 81
--- NOTE | 2019-11-03 06:22 | NUR ---
PT ASLEEP AND EASILY AWAKEN, SLEPT WELL. NO S/S OF DISTRESS. MONITORED FOR PAIN. NO C/O OF PAIN AT THIS TIME. KEPT CLEAN, DRY AND COMFORTABLE. AM CARE RENDERED, NEEDS ATTENDED AND ANTICIPATED. SAFETY MEASURES AT ALL TIMES. WILL ENDORSE NEXT SHIFT POC.
[2019-11-03] MEDS: BLOOD SUGAR DIAGNOSTIC 1 EACH STRIP VI SCH ×4 (06:57→21:46)
[2019-11-03] MEDS: INSULIN REGULAR, HUMAN 100 UNIT/ML 3 ML VIAL SQ PRN ×3 (06:59→18:18)
[2019-11-03 07:00] LABS: BASOPHILS % (AUTO) 0.1 % (0.0-2.0); HEMATOCRIT 36 % (33-45); HEMOGLOBIN 11.6 g/dL (11.5-14.8); LYMPHOCYTES # (AUTO) 0.7 /CMM (0.8-4.8); LYMPHOCYTES % (AUTO) 4.9 % (20.0-44.0); MEAN CORPUSCULAR HGB CONC 32 g/dl (31.0-36.0); MEAN CORPUSCULAR VOLUME 93 fL (82-100); MONOCYTES # (AUTO) 0.5 /CMM (0.1-1.30); MONOCYTES % (AUTO) 3.3 % (2.0-12.0); NEUTROPHILS # (AUTO) 13.2 /CMM (1.8-8.9); NEUTROPHILS % (AUTO) 91.7 % (43.0-81.0); PLATELET COUNT (AUTO) 349 /CMM (150-450); RED BLOOD CELL COUNT(AUTO) 3.87 MIL/uL (4.0-5.2); WHITE BLOOD COUNT (AUTO) 14.3 K/uL (4.3-11.0)
[2019-11-03 07:17] LABS: CREATININE 1.2 mg/dL (0.6-1.3); MAGNESIUM 2.3 mg/dL (1.8-2.4); POTASSIUM 3.8 mmol/L (3.5-5.1)
[2019-11-03 07:30] VITALS: BP 151/95
--- NOTE | 2019-11-03 07:33 | NUR ---
RN OPENING NOTES Patient received on room air, no sob noted, patient shows no s/s of pain at this time. R eye blindness, L AC 24 and R ac 20. Bed at the lowest setting, call light within reach, side rails up x2.
[2019-11-03] MEDS: ASPIRIN EC 81 MG TABLET.DR PO SCH (08:12)
[2019-11-03] MEDS: LEVOTHYROXINE SODIUM 75 MCG TABLET PO SCH (08:12)
[2019-11-03] MEDS: MORPHINE SULFATE SR 15 MG TABLET.SA PO SCH ×2 (08:14→21:45)
[2019-11-03] MEDS: GABAPENTIN 300 MG CAPSULE PO SCH ×3 (08:14→16:19)
[2019-11-03] MEDS: NIFEdipine XL (30MG) 30 MG TAB PO SCH (08:16)
[2019-11-03] MEDS: CYCLOBENZAPRINE 10 MG TABLET PO SCH (08:17)
[2019-11-03] MEDS: methylPREDNISolone SOD SUCC 125 MG/2ML VIAL IV SCH (08:18)
[2019-11-03] MEDS: DOCUSATE SODIUM 100 MG CAPSULE PO SCH (08:18)
[2019-11-03] MEDS: CLOTRIMAZOLE 1% CREAM 24 GM TUBE TP SCH ×2 (08:18→16:20)
[2019-11-03] MEDS: AMMONIUM LACTATE 227 GM BOTTLE TP SCH (08:19)
[2019-11-03] MEDS: METOCLOPRAMIDE HCL 10 MG TABLET PO SCH ×3 (09:00→16:19)
[2019-11-03] MEDS: TIMOLOL MAL/DORZOLAM HCL OPHTH 10 ML BOTTLE OP SCH ×2 (09:00→16:20)
[2019-11-03 11:34] LABS: CALCIUM, SERUM 8.3 mg/dL (8.5-10.1); CREATININE 1.3 mg/dL (0.6-1.3); POTASSIUM 3.9 mmol/L (3.5-5.1)
[2019-11-03] MEDS ORDERED: K PHOS NEUTRAL 250 MG TABLET PO ONE (12:30)
[2019-11-03] MEDS: LEVOFLOXACIN 500 MG /D5W 100ML 500 MG in PREMIX 1 EA IV SCH (13:51)
[2019-11-03] MEDS: methylPREDNISolone SOD SUCC 40 MG/ML VIAL IV SCH ×2 (14:00→16:19)
[2019-11-03] MEDS: MAG HYDROX/AL HYDROX/SIMETH 30 ML UDC PO PRN (15:13)
[2019-11-03] MEDS: MORPHINE SULFATE INJ 2 MG/ML DISP.SYRIN IV PRN ×2 (15:13→20:17)
--- NOTE | 2019-11-03 18:29 | NUR ---
RN CLosing notes Patient remains on room air, no sob noted, a/o x4. R eye blindness and is ambulatory. CCHO diet with 24 L ac and R ac 20 gauge. Blood sugar trending down to normal values. Bed at the lowest setting, call light within reach, side rails up x2. Will give report to NOC RN for JASMINE bedside.
--- NOTE | 2019-11-03 19:22 | NUR ---
MS RN RECEIVED PATIENT IN BED AWAKE WATCHING TV A/O X 4, FRIEND AT BEDSIDE, STABLE AND NOT IN DISTRESS. WILL CONTINUE TO MONITOR
[2019-11-03 20:00] VITALS: BP 153/95
[2019-11-03 20:09] VITALS: BP 153/95
[2019-11-03] MEDS: ATORVASTATIN 40 MG TABLET PO SCH (21:45)
[2019-11-03] MEDS: INSULIN GLARGINE, 100 UNIT/ML CARTRIDGE SQ SCH (21:46)
[2019-11-03] MEDS: *INSULIN REGULAR(HUMULIN R)HUM 100 UNIT/ML VIAL SQ PRN (21:48)
[2019-11-03] MEDS: ZOLPIDEM TARTRATE 5 MG TABLET PO PRN (23:38)
[2019-11-04] MEDS: MORPHINE SULFATE INJ 2 MG/ML DISP.SYRIN IV PRN ×2 (03:35→13:45)
--- NOTE | 2019-11-04 06:40 | NUR ---
PT SLEPT WELL. MONITORED FOR PAIN, NO C/O OF PAIN AT THIS TIME. NOT IN APPARENT DISTRESS. KEPT CLEAN, DRY AND COMFORTABLE. NEEDS ATTENDED AND ANTICIPATED. AM CARE RENDERED. SAFETY MEASURES AT ALL TIMES. WILL ENDORSE NEXT SHIFT POC.
[2019-11-04] MEDS: BLOOD SUGAR DIAGNOSTIC 1 EACH STRIP VI SCH ×2 (07:00→12:04)
[2019-11-04] MEDS: INSULIN REGULAR, HUMAN 100 UNIT/ML 3 ML VIAL SQ PRN (07:01)
--- NOTE | 2019-11-04 07:39 | NUR ---
RN OPENING NOTES Patient received on room air, no sob noted, patient denies pain at this time. Patient remains a/o x4 at this time. R AC 20 and L AC 24. Patient lying down comfortably on her bed with no issues. Bed at the lowest setting, call light within reach, side rails up x2.
[2019-11-04 08:00] VITALS: BP 129/90
[2019-11-04] MEDS: MORPHINE SULFATE SR 15 MG TABLET.SA PO SCH (08:18)
[2019-11-04 08:19] VITALS: BP 129/90
[2019-11-04] MEDS: NIFEdipine XL (30MG) 30 MG TAB PO SCH (08:19)
[2019-11-04] MEDS: GABAPENTIN 300 MG CAPSULE PO SCH ×2 (08:20→12:06)
[2019-11-04] MEDS: METOCLOPRAMIDE HCL 10 MG TABLET PO SCH ×2 (08:20→12:06)
[2019-11-04] MEDS: ASPIRIN EC 81 MG TABLET.DR PO SCH (08:22)
[2019-11-04] MEDS: CYCLOBENZAPRINE 10 MG TABLET PO SCH (08:22)
[2019-11-04] MEDS: LEVOTHYROXINE SODIUM 75 MCG TABLET PO SCH (08:22)
[2019-11-04] MEDS: TIMOLOL MAL/DORZOLAM HCL OPHTH 10 ML BOTTLE OP SCH (08:23)
[2019-11-04] MEDS: DOCUSATE SODIUM 100 MG CAPSULE PO SCH (08:23)
[2019-11-04] MEDS: CLOTRIMAZOLE 1% CREAM 24 GM TUBE TP SCH (08:23)
[2019-11-04] MEDS: methylPREDNISolone SOD SUCC 40 MG/ML VIAL IV SCH (08:23)
[2019-11-04] MEDS: AMMONIUM LACTATE 227 GM BOTTLE TP SCH (08:24)
[2019-11-04] MEDS: MAG HYDROX/AL HYDROX/SIMETH 30 ML UDC PO PRN (09:40)
[2019-11-04 10:37] LABS: BASOPHILS % (AUTO) 0.2 % (0.0-2.0); HEMATOCRIT 38 % (33-45); HEMOGLOBIN 12.5 g/dL (11.5-14.8); LYMPHOCYTES # (AUTO) 1.1 /CMM (0.8-4.8); LYMPHOCYTES % (AUTO) 7.6 % (20.0-44.0); MEAN CORPUSCULAR HGB CONC 33 g/dl (31.0-36.0); MEAN CORPUSCULAR VOLUME 92 fL (82-100); MONOCYTES # (AUTO) 0.5 /CMM (0.1-1.30); MONOCYTES % (AUTO) 3.5 % (2.0-12.0); NEUTROPHILS % (AUTO) 88.7 % (43.0-81.0); PLATELET COUNT (AUTO) 447 /CMM (150-450); RED BLOOD CELL COUNT(AUTO) 4.13 MIL/uL (4.0-5.2); WHITE BLOOD COUNT (AUTO) 14.6 K/uL (4.3-11.0)
[2019-11-04] MEDS: LEVOFLOXACIN 500 MG /D5W 100ML 500 MG in PREMIX 1 EA IV SCH (11:07)
[2019-11-04 11:08] LABS: ALBUMIN 2.5 g/dL (3.4-5.0); BILIRUBIN,TOTAL 0.3 mg/dL (0.2-1.0); CALCIUM, SERUM 8.6 mg/dL (8.5-10.1); CREATININE 1.4 mg/dL (0.6-1.3); POTASSIUM 4.9 mmol/L (3.5-5.1); TOTAL PROTEIN, SERUM 6.8 g/dL (6.4-8.2)
[2019-11-04] MEDS ORDERED: LEVO500T75 PO (11:18)
[2019-11-04] MEDS: *INSULIN REGULAR(HUMULIN R)HUM 100 UNIT/ML VIAL SQ PRN (12:03)
[2019-11-04] MEDS ORDERED: K PHOS NEUTRAL 250 MG TABLET PO ONE (12:30)
--- NOTE | 2019-11-04 14:28 | NUR ---
registry rn notes. Patient discharged at this time. No sob noted, patient states that pain is under control at this time. Patient has all the paperwork necessary for discharge. Patients IV line removed with minimal bleeding noted. Patient states that there is no missing belongings at this time and has all of it with her possession.
== END 2019-11-04 14:30 | disposition home or self-care (01) | DRG 469 ==
LOC: ER 13:51 → MEDSG1 17:55 → ICU 19:42 → MEDSG2 11-02 15:04
PROVIDERS: ADMIT Internal Medicine; ATTEND Internal Medicine
DX: N17.0 Acute kidney failure with tubular necrosis (principal); J96.01 Acute respiratory failure with hypoxia; E43 Unspecified severe protein-calorie malnutrition; E11.21 Type 2 diabetes mellitus with diabetic nephropathy; E11.10 Type 2 diabetes mellitus with ketoacidosis without coma; F11.20 Opioid dependence, uncomplicated; E11.22 Type 2 diabetes mellitus with diabetic chronic kidney disease; E27.1 Primary adrenocortical insufficiency; K31.84 Gastroparesis; N39.0 Urinary tract infection, site not specified; B96.20 Unspecified Escherichia coli [E. coli] as the cause of diseases classified elsewhere; J20.9 Acute bronchitis, unspecified; E11.319 Type 2 diabetes mellitus with unspecified diabetic retinopathy without macular edema; E11.40 Type 2 diabetes mellitus with diabetic neuropathy, unspecified; Z68.20 Body mass index [BMI] 20.0-20.9, adult; I12.9 Hypertensive chronic kidney disease with stage 1 through stage 4 chronic kidney disease, or unspecified chronic kidney disease; N18.9 Chronic kidney disease, unspecified; I25.2 Old myocardial infarction; E78.5 Hyperlipidemia, unspecified; E03.9 Hypothyroidism, unspecified; E11.43 Type 2 diabetes mellitus with diabetic autonomic (poly)neuropathy; H54.8 Legal blindness, as defined in USA; Z96.41 Presence of insulin pump (external) (internal)
CPT/HCPCS: 36415; 36600; 71045-TC; 80048-TC; 80053-TC; 80076-TC; 81000-TC; 82272-TC; 82550-TC; 82570-TC; 82803-TC; 82962-TC; 83605-TC; 83735-TC; 83970; 84100-TC; 84155-TC; 84300-TC; 84703-TC; 85025-TC; 87081-TC; 87086-TC; 87186-TC; A4216; A6253; G0378; J0360; J0696; J1815; J1885; J1956; J2270; J2405; J2920; J2930; J3475; J3490; J7030; J7042; J7060; J8597